=== PATIENT | female | born 1970 | race Two or more races ===

== ENCOUNTER 2024-03-14 14:46 | Emergency (ER) | payer OTHER ==
[~2024-03-14] VITALS: Ht 154.9 cm; Wt 90.9 kg
[2024-03-14 19:57] VITALS: BP 125/70; PULSE 68; RESP 16; TEMP 97.6
[2024-03-14] MEDS ORDERED: IBUP-1492 PO (19:59)
[2024-03-14] MEDS: KETOROLAC TROMETHAMINE 30 MG/ML VIAL IM ONE (19:59)
[2024-03-14 20:45] LABS: GLUCOMETER DEV NAME(LOC) ERT.5; GLUCOSE,POINT OF CARE 179 MG/DL (70-110)
== END 2024-03-14 21:14 | disposition home or self-care (01) ==
LOC: EMS 14:46
DX: M79.651 Pain in right thigh (principal); E11.9 Type 2 diabetes mellitus without complications; I11.0 Hypertensive heart disease with heart failure; I50.9 Heart failure, unspecified
CPT/HCPCS: 99284; 82962; 73502; 73552; 96372; J1885